=== PATIENT | male | born 1945 | race Caucasian/White ===

== ENCOUNTER 2016-08-21 11:36 | Emergency (ER) | payer OTHER ==
[~2016-08-21] VITALS: Ht 177.8 cm; Wt 85.3 kg
[2016-08-21 12:58] LABS: BASOPHIL % 0.1 % (0-2); PLATELET COUNT 138 x10^3mcL (130-400); RED CELL DISTRIBUTION WIDTH 14.2 % (11.5-14.5)
[2016-08-21 13:06] LABS: CALCIUM 8.3 mg/dL (8.5-10.1); CARBON DIOXIDE 26.8 mmol/L (21-32); CHLORIDE SERUM 95 mmol/L (98-107); GFR1 > 60 mL/min; GLUCOSE SERUM 131 mg/dL (74-106); POTASSIUM SERUM 3.6 mmol/L (3.5-5.1); SODIUM SERUM 133 mmol/L (136-145)
[2016-08-21 13:10] LABS: ALKALINE PHOSPHATASE 100 U/L (46-116); ALT/SGPT 42 U/L (16-63); AST/SGOT 39 U/L (15-37); BILIRUBIN TOTAL 0.9 mg/dL (0.20-1.00); LIPASE 82 IU/L (73-393); TOTAL PROTEIN, SERUM 7.8 g/dL (6.4-8.2)
[2016-08-21 13:34] LABS: ALBUMIN 3.3 g/dL (3.4-5.0); AMYLASE 24 U/L (25-115)
[2016-08-21 16:28] LABS: UA SPECIFIC GRAVITY >=1.030 (1.005-1.035); microscopic required? YES; urine erythrocyte TRACE (NEGATIVE)
[2016-08-21 19:14] VITALS: BP 126/68
== END 2016-08-21 19:14 | disposition home or self-care (01) ==
LOC: ED 11:36
PROVIDERS: Emergency Medicine
DX: K57.92 Diverticulitis of intestine, part unspecified, without perforation or abscess without bleeding (principal); I10 Essential (primary) hypertension
CPT/HCPCS: J1200; J2405; J2930; J7030; Q9967

== ENCOUNTER 2016-11-14 14:21 | Emergency (ER) | payer OTHER ==
[2016-11-14 14:28] VITALS: BP 143/106
== END 2016-11-14 14:59 | disposition home or self-care (01) ==
LOC: ED 14:21
DX: L30.9 Dermatitis, unspecified (principal); L03.211 Cellulitis of face; L03.114 Cellulitis of left upper limb